=== PATIENT | female | born 1955 | race Two or more races ===

== ENCOUNTER 2017-12-12 22:04 | Inpatient (IN) | payer BC, OTHER ==
[~2017-12-12] VITALS: Ht 167.6 cm; Wt 87.1 kg
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
[2017-12-13] MEDS ORDERED: TOPI25TA49 PO (14:26)
[2017-12-13] MEDS ORDERED: ENAL10TA PO (14:26)
[2017-12-13] MEDS ORDERED: VENL150C2 PO (14:26)
[2017-12-13] MEDS ORDERED: ALPR0.25 PO (14:26)
[2017-12-13] MEDS ORDERED: OMEP20TA5 PO (14:26)
[2017-12-13] MEDS ORDERED: LEVO25TA9 PO (14:26)
[2017-12-13] MEDS ORDERED: ZOLP10TA2 PO (14:26)
[2017-12-13] MEDS ORDERED: MAG HYDROX/AL HYDROX/SIMETH 30 ML UDC PO PRN (14:30)
[2017-12-13] MEDS ORDERED: MAGNESIUM HYDROXIDE 30 ML UDC PO PRN (14:30)
[2017-12-13] MEDS ORDERED: TEMAZEPAM 7.5 MG CAPSULE PO PRN (14:30)
[2017-12-13] MEDS ORDERED: PREG75CA PO (14:34)
[2017-12-13 16:00] VITALS: BP 139/86
[2017-12-13 20:21] VITALS: BP 133/83
[2017-12-13] MEDS: PREGABALIN 25 MG CAPSULE PO SCH (21:46)
[2017-12-13] MEDS: ENALAPRIL MALEATE (10 MG) 10 MG TABLET PO SCH (21:47)
[2017-12-13] MEDS: ZOLPIDEM TARTRATE 5 MG TABLET PO PRN (21:48)
[2017-12-13] MEDS: MIRTAZAPINE 15 MG TABLET PO SCH ×2 (22:00→23:52)
[2017-12-13] MEDS: LORAZEPAM 0.5 MG TABLET PO PRN (22:53)
[2017-12-13 22:57] VITALS: BP 114/77
[2017-12-13] MEDS: ACETAMINOPHEN 325 MG TABLET PO PRN (23:52)
[2017-12-14 07:19] LABS: ALBUMIN 3.5 g/dL (3.4-5.0); BILIRUBIN,TOTAL 0.5 mg/dL (0.2-1.0); CALCIUM, SERUM 9.1 mg/dL (8.5-10.1); CREATININE 0.8 mg/dL (0.6-1.3); POTASSIUM 3.7 mmol/L (3.5-5.1); TOTAL PROTEIN, SERUM 7.3 g/dL (6.4-8.2)
[2017-12-14 07:25] LABS: CHOLESTEROL 182 mg/dL (<200); HDL CHOLESTEROL 60 mg/dL (40-60); LDL 100 mg/dL (0-99); TRIGLYCERIDES 168 mg/dL (30-150)
[2017-12-14 08:00] VITALS: BP 100/68
[2017-12-14] MEDS: PANTOPRAZOLE 40 MG TABLET.DR PO SCH (08:13)
[2017-12-14] MEDS: LEVOTHYROXINE SODIUM 25 MCG TABLET PO SCH (08:13)
[2017-12-14] MEDS: PREGABALIN 25 MG CAPSULE PO SCH ×2 (08:13→17:21)
[2017-12-14] MEDS ORDERED: ENALAPRIL MALEATE (10 MG) 10 MG TABLET PO SCH (09:00)
[2017-12-14] MEDS ORDERED: VENLAFAXINE XR 75 MG CAP.SR.24H PO SCH ×2 (09:00→20:00)
[2017-12-14] MEDS: LORAZEPAM 0.5 MG TABLET PO PRN ×2 (12:07→22:32)
--- NOTE | 2017-12-14 12:07 | NUR ---
RN NOTE: PATIENT SHAKING. LORAZEPAM GIVEN. PRN.
[2017-12-14 16:09] VITALS: BP 100/59
[2017-12-14] MEDS: ACETAMINOPHEN 325 MG TABLET PO PRN (19:52)
--- NOTE | 2017-12-14 19:54 | NUR ---
GPS RN NOTE: PATIENT C/O OF HEADACHE 11/27. PATIENT REQUESTING FOR TYLENOL. ADMINISTERED ACETAMINOPHEN 650MG PO ORDERED. WILL CONTINUE TO MONITOR.
[2017-12-14 20:00] VITALS: BP 141/96
[2017-12-14] MEDS: ENALAPRIL MALEATE (10 MG) 10 MG TABLET PO SCH (21:03)
[2017-12-14] MEDS: MIRTAZAPINE 15 MG TABLET PO SCH (21:04)
--- NOTE | 2017-12-14 21:04 | NUR ---
GPS/RN PATIENT REFUSED TO TAKE HER SCHEDULED MED REMERON 7.5MG PO. OFFERED X3, EXPLAINED RISKS AND BENEFITS. PATIENT STATED "THAT MAKES ME ANXIOUS".
[2017-12-14] MEDS: ZOLPIDEM TARTRATE 5 MG TABLET PO PRN (22:03)
--- NOTE | 2017-12-14 22:33 | NUR ---
GPS RN NOTE: PATIENT IS ANXIOUS, REQUESTED FOR ATIVAN. VSS. ADMINISTERED ATIVAN 0.5MG PO ORDERED. WILL CONTINUE TO MONITOR [id number] FOR SAFETY AND BEHAVIOR.
[2017-12-15] MEDS: PANTOPRAZOLE 40 MG TABLET.DR PO SCH (07:42)
[2017-12-15] MEDS: LEVOTHYROXINE SODIUM 25 MCG TABLET PO SCH (07:42)
[2017-12-15 08:00] VITALS: BP 124/85
[2017-12-15] MEDS: PREGABALIN 25 MG CAPSULE PO SCH ×2 (08:25→17:14)
[2017-12-15] MEDS: HYDROCODONE/APAP 10/325MG 1 EA TABLET PO PRN ×2 (11:36→20:37)
[2017-12-15] MEDS ORDERED: ZOLPIDEM TARTRATE 10 MG TABLET PO PRN (12:00)
[2017-12-15] MEDS: VENLAFAXINE XR 75 MG CAP.SR.24H PO SCH (12:09)
--- NOTE | 2017-12-15 14:50 | NUR ---
Discharge Note: Patient lives at home with her and daughter [address] [place] [address]. ([phone]/ [phone]). Patient would like to return home upon discharge. SW spoke to patient's John Nix ([phone]) who confirmed that patient can return home upon discharge and he will pick her up via private vehicle. packing room worker will help form a safe and proper discharge.
--- NOTE | 2017-12-15 14:50 | NUR ---
UR Update: HANK left clinicals (voicemail) with case finishing machine adjuster assigned Raquel HaganBrandi, direct line [phone] EXT [phone] FAX# [phone]. HANK also informed Raquel that patient was scheduled to be discharged tomorrow 12/16/17 at 1:00PM and wanted her to provide a follow-up appointment with a psychiatrist or provide a list of psychiatrist in patient's area that are within network. HANK will follow-up again tomorrow.
[2017-12-15 16:00] VITALS: BP 135/85
--- NOTE | 2017-12-15 18:58 | NUR ---
RN NOTE: CALLED [facility] TO GET BACTROBAN OINTMENT, NO CALL BACK YET.
[2017-12-15 20:04] VITALS: BP 148/89
[2017-12-15] MEDS: MUPIROCIN OINT 2% 22 GM TUBE SCH (20:31)
--- NOTE | 2017-12-15 20:37 | NUR ---
GPS/RN PATIENT C/O GENERALIZED PAIN, 03/29. PATIENT REQUESTED FOR NORCO. VSS. ADMINISTERED NORCO 10/325MG PO ORDERED. WILL CONTINUE TO MONITOR.
[2017-12-15] MEDS: ENALAPRIL MALEATE (10 MG) 10 MG TABLET PO SCH (21:23)
[2017-12-15] MEDS: MIRTAZAPINE 15 MG TABLET PO SCH (21:24)
--- NOTE | 2017-12-16 04:37 | NUR ---
GPS RN PATIENT C/O LOWER BACK PAIN, 03/29. PATIENT IS REQUESTING FOR NORCO. VSS. ADMINISTERED NORCO 10/325MG PO ORDERED, WILL CONTINUE TO MONITOR.
[2017-12-16] MEDS: HYDROCODONE/APAP 10/325MG 1 EA TABLET PO PRN ×2 (04:38→11:15)
[2017-12-16 08:00] VITALS: BP 109/63
[2017-12-16] MEDS: MUPIROCIN OINT 2% 22 GM TUBE SCH (08:51)
[2017-12-16] MEDS: PANTOPRAZOLE 40 MG TABLET.DR PO SCH (08:51)
[2017-12-16] MEDS: PREGABALIN 25 MG CAPSULE PO SCH (08:51)
[2017-12-16] MEDS: LEVOTHYROXINE SODIUM 25 MCG TABLET PO SCH (08:51)
[2017-12-16] MEDS: VENLAFAXINE XR 75 MG CAP.SR.24H PO SCH (08:51)
--- NOTE | 2017-12-16 11:15 | NUR ---
GPS/RN-NOTES PATIENT C/O LOWER BACK PAIN AND REQUESTING FOR TYLENOL. TYLENOL 650MG P.O GIVEN PRN ORDER. WILL CONT. MONITORING FOR SAFETY.
[2017-12-16] MEDS: ACETAMINOPHEN 325 MG TABLET PO PRN (11:22)
--- NOTE | 2017-12-16 12:30 | NUR ---
GPS/RN-NOTES PATIENT IN THE DAY ROOM,CALM NO C/O OF ANY DISCOMFORT AT THIS TIME.
--- NOTE | 2017-12-16 14:00 | NUR ---
GPS/RN-NOTES PATIENT DISCHARGE TO HOME TODAY. DR. PACHECO AND DR. JEFFERSON AWARE AND AGREES OF PATIENT DISCHARGE. ALL DISCHARGE MEDICATIONS WAS REVIEWED WITH THE PATIENT AND HER WITH UNDERSTANDING. RX WAS GIVEN TO THE [facility]PS. PATIENT DID NOT VERBALIZE SI/HI,DENIES VISUAL/AUDITORY HALLUCINATIONS AT THE TIME OF DISCHARGE. PATIENT LEFT THE UNIT IN STABLE CONDITION,ALERT ORIENTED X4 AMBULATORY WITH STEADY GAIT WITH ALL HER BELONGINGS. SHE WAS ASSISTED BY ONE STRIKE PLATE ATTACHER STAFF IN THE LOBBY FOR SAFETY. PATIENT LEFT WITH HER AND PATIENT FEMALE FRIEND VIA PRIVATE CAR.
--- NOTE | 2017-12-16 14:24 | NUR ---
Discharge Note: Patient was discharged back home [address] [place] [address]. ([phone]/ [phone]). Patient's John Nix ([phone]) was notified and will picked-up patient via private vehicle. Patient appeared calm upon discharge. Patient denied suicidal and homicidal ideations upon discharge. SW provided patient with a list of psychiatrist provided by her insurance [employer]. Patient was referred to [facility] Provider [facility] [place] [address] [address], [place] [address] ([phone]) for follow-up and to further discuss her medication use. Facilitated info to IDT team who are in agreement with discharge arrangement. The multidisciplinary exitcare form was done, printed, signed, and given to the patient.
--- NOTE | 2017-12-16 15:14 | NUR ---
UR Update: left discharge summary (voicemail) with case assistant assigned Raquel Burrell, direct line [phone] EXT [phone] FAX# [phone].
== END 2017-12-16 14:00 | disposition home or self-care (01) | DRG 885 ==
LOC: GPS 12-13 13:40
PROVIDERS: ADMIT Psychiatry & Neurology Psychosomatic Medicine; ATTEND Psychiatry & Neurology Psychosomatic Medicine
DX: F33.2 Major depressive disorder, recurrent severe without psychotic features (principal); G62.9 Polyneuropathy, unspecified; E03.9 Hypothyroidism, unspecified; G89.4 Chronic pain syndrome; F43.10 Post-traumatic stress disorder, unspecified; I10 Essential (primary) hypertension; F41.0 Panic disorder [episodic paroxysmal anxiety]; Z87.891 Personal history of nicotine dependence; Z87.440 Personal history of urinary (tract) infections; Z79.899 Other long term (current) drug therapy; F41.9 Anxiety disorder, unspecified
CPT/HCPCS: 36415; 80053-TC; 80061-TC; 87081-TC